=== PATIENT | male | born 1970 | race Caucasian/White ===

== ENCOUNTER 2018-09-02 12:28 | Emergency (ER) | payer BC ==
[~2018-09-02] VITALS: Ht 180.3 cm; Wt 102.3 kg
[2018-09-02 12:43] VITALS: BP 146/102
[2018-09-02] MEDS ORDERED: cephalexin 500mg capsule PO ONE (13:35)
[2018-09-02] MEDS ORDERED: CEPH500C5 PO (13:35)
== END 2018-09-02 13:55 | disposition home or self-care (01) ==
LOC: ER 12:28
DX: L02.512 Cutaneous abscess of left hand (principal); M79.642 Pain in left hand; I10 Essential (primary) hypertension; G89.29 Other chronic pain; Z87.891 Personal history of nicotine dependence; Z98.890 Other specified postprocedural states; Z88.2 Allergy status to sulfonamides
CPT/HCPCS: 29125; 99283

== ENCOUNTER 2021-11-26 16:35 | Emergency (ER) | payer BC ==
[~2021-11-26] VITALS: Ht 180.3 cm; Wt 106.8 kg
[2021-11-26] MEDS ORDERED: morphine 4 MG/ML inj SYRINge IM ONE (17:40)
[2021-11-26] MEDS ORDERED: ketorolac trometh inj. 60 MG/2 ML VIAL IM ONE (17:40)
[2021-11-26] MEDS ORDERED: PRED20TA PO ×3 (17:47→17:48)
[2021-11-26 18:08] VITALS: BP 122/84
== END 2021-11-26 18:10 | disposition home or self-care (01) ==
LOC: ER 16:35
DX: M25.561 Pain in right knee (principal); L40.50 Arthropathic psoriasis, unspecified; M25.562 Pain in left knee; M25.552 Pain in left hip; I10 Essential (primary) hypertension; G89.29 Other chronic pain; F12.90 Cannabis use, unspecified, uncomplicated; Z72.89 Other problems related to lifestyle; Z88.2 Allergy status to sulfonamides; Z79.899 Other long term (current) drug therapy
CPT/HCPCS: 96372; 99284; J1885; J2270

== ENCOUNTER 2024-02-10 17:21 | Observation (INO) | payer BC ==
[~2024-02-10] VITALS: Ht 177.8 cm; Wt 113.6 kg
[~2024-02-10 17:21] MED LIST: PRED20TA PO
[2024-02-10 17:59] LABS: EOSINOPHILS # (AUTO) 0.2 X10'3 (0-0.9); LYMPHOCYTES # (AUTO) 1.5 X10'3 (1.1-4.8); MEAN CORPUSCULAR HEMOGLOBIN 29.9 PG (27.0-31.0); MEAN PLATELET VOLUME 8.4 FL (7.4-10.4); MONOCYTES # (AUTO) 0.7 X10'3 (0-0.9)
[2024-02-10 18:00] LABS: BASOPHILS % (AUTO) 0.7 % (0-1); HEMATOCRIT 47.9 % (42.0-52.0); HEMOGLOBIN 16.1 g/dl (14.0-17.9); LYMPHOCYTES % (AUTO) 21.9 % (21-51); MEAN CORPUSCULAR HGB CONC 33.6 g/dL (33.0-36.5); MONOCYTES % (AUTO) 10.5 % (2-12); NEUTROPHILS # (AUTO) 4.3 X10'3 (1.8-7.7); NEUTROPHILS % (AUTO) 63.9 % (42-75); PLATELET COUNT 216 X10'3 (140-440); RED BLOOD COUNT 5.38 X10'6 (4.70-6.10); RED CELL DISTRIBUTION WIDTH 14.2 % (11.5-14.5); WHITE BLOOD COUNT 6.7 X10'3 (4.5-11.0)
[2024-02-10 18:07] LABS: ANION GAP 8 (8-16); BLOOD UREA NITROGEN 10 MG/DL (7-18); BUN/CREATININE RATIO 8.9 (10.0-20.0); CHLORIDE 101 MMOL/L (99-107); CREATININE 1.12 MG/DL (0.60-1.10); GLUCOSE 101 MG/DL (70-104); POTASSIUM 4.5 MMOL/L (3.5-5.1); SODIUM 137 MMOL/L (135-145); TOTAL CARBON DIOXIDE 27.8 MMOL/L (24-32); eCRCL 77 ML/MIN; eGFR 68 ML/MIN
[2024-02-10 18:11] LABS: APTT 24 SECONDS (22-32); PROTHROMBIN TIME 10.6 SECONDS (9.0-12.0)
[2024-02-10] MEDS ORDERED: MODA200T48 PO (19:19)
[2024-02-10] MEDS ORDERED: LISI20TA28 PO (19:19)
[2024-02-10] MEDS ORDERED: TOFA11TA PO (19:19)
[2024-02-10] MEDS ORDERED: HYDR-3973 PO (19:19)
[2024-02-10] MEDS ORDERED: acetaminophen 325mg tablet PO PRN (19:50)
[2024-02-10] MEDS ORDERED: mag hydrox/Alum hydrox/simeth 30ml oral suspension PO PRN (19:50)
[2024-02-10] MEDS ORDERED: magnesium 4gm in 100ml NS 100 ML IV PRN (19:50)
[2024-02-10] MEDS ORDERED: potassium Cl 40MEQ/1/2NS 520ml 520 ML IV PRN (19:50)
[2024-02-10] MEDS ORDERED: magnesium Cl slow-release 64mg tablet PO PRN (19:50)
[2024-02-10] MEDS ORDERED: magnesium 2GM in 50ml NS 50 ML IV PRN (19:50)
[2024-02-10] MEDS ORDERED: potassium Cl 20 mEq SR tablet PO PRN ×2 (19:50)
[2024-02-10] MEDS ORDERED: ondansetron/PF 4mg/2ml inj IV PRN (19:50)
[2024-02-10] MEDS ORDERED: magnesium hydroxide 30ml (MOM) UD suspension PO PRN (19:50)
[2024-02-10] MEDS ORDERED: dexamethasone inj 6 MG in dextrose 5%-water 100 ML IV SCH (20:00)
[2024-02-10] MEDS: K and/or MAG REPLACEMENT MC SCH (20:00)
[2024-02-10] MEDS: docusate sod 100mg capsule PO SCH (20:00)
[2024-02-10] MEDS: dexamethasone inj 6 MG in normal saline 50ml IV soln 50 ML IV SCH (20:28)
[2024-02-10 20:34] LABS: THYROID STIMULATING HORMONE 2.28 ulU/ml (0.34-4.50)
[2024-02-10 22:00] VITALS: BP 150/96; PULSE 72; RESP 18; TEMP 99.7; O2SAT 94
[2024-02-10] MEDS ORDERED: prosta genix (23:08)
[2024-02-10] MEDS ORDERED: CETI10CA11 PO (23:08)
[2024-02-10] MEDS ORDERED: PRED20TA PO (23:08)
[2024-02-10] MEDS ORDERED: OMEP20CA15 PO (23:08)
[2024-02-10] MEDS ORDERED: INDO75CA3 PO (23:11)
[2024-02-10] MEDS ORDERED: PRED10TA PO (23:22)
[2024-02-11 02:00] VITALS: BP 117/67; PULSE 73; RESP 13; TEMP 96.7; O2SAT 96
[2024-02-11 06:44] LABS: BASOPHILS % (AUTO) 0.2 % (0-1); EOSINOPHILS % (AUTO) 0.2 % (0-6); HEMATOCRIT 51.3 % (42.0-52.0); HEMOGLOBIN 17.3 g/dl (14.0-17.9); LYMPHOCYTES # (AUTO) 0.9 X10'3 (1.1-4.8); MEAN CORPUSCULAR HEMOGLOBIN 29.9 PG (27.0-31.0); MEAN CORPUSCULAR HGB CONC 33.7 g/dL (33.0-36.5); MEAN CORPUSCULAR VOLUME 88.7 FL (78-98); MEAN PLATELET VOLUME 8.9 FL (7.4-10.4); MONOCYTES # (AUTO) 0.3 X10'3 (0-0.9); NEUTROPHILS # (AUTO) 6.5 X10'3 (1.8-7.7); NEUTROPHILS % (AUTO) 83.6 % (42-75); PLATELET COUNT 251 X10'3 (140-440); RED BLOOD COUNT 5.78 X10'6 (4.70-6.10); RED CELL DISTRIBUTION WIDTH 14.1 % (11.5-14.5); WHITE BLOOD COUNT 7.8 X10'3 (4.5-11.0)
[2024-02-11 07:00] VITALS: BP 123/80; PULSE 70; RESP 17; TEMP 98; O2SAT 97
[2024-02-11 07:00] LABS: ALANINE AMINOTRANSFERASE 62 U/L (12-78); ALBUMIN 4.2 G/DL (3.4-5.0); ALKALINE PHOSPHATASE 55 IU/L (46-116); ANION GAP 9 (8-16); ASPARTATE AMINO TRANSFERASE 31 U/L (10-37); BILIRUBIN,TOTAL 0.8 MG/DL (0.1-1.0); BLOOD UREA NITROGEN 10 MG/DL (7-18); BUN/CREATININE RATIO 8.5 (10.0-20.0); CALCIUM 9.5 MG/DL (8.5-10.1); CHLORIDE 101 MMOL/L (99-107); CREATININE 1.17 MG/DL (0.60-1.10); GLUCOSE 116 MG/DL (70-104); MAGNESIUM 2.4 MG/DL (1.5-2.4); POTASSIUM 4.9 MMOL/L (3.5-5.1); SODIUM 136 MMOL/L (135-145); TOTAL CARBON DIOXIDE 26.3 MMOL/L (24-32); TOTAL PROTEIN 8.5 G/DL (6.4-8.2); eCRCL 74 ML/MIN; eGFR 65 ML/MIN
[2024-02-11] MEDS: enoxaparin 30mg/0.3ml syringe SUBCUT SCH (08:00)
[2024-02-11 11:00] VITALS: BP 136/89; PULSE 80; RESP 20; TEMP 98.5; O2SAT 96
[2024-02-11] MEDS ORDERED: ACET-1084 PO (11:30)
== END 2024-02-11 12:32 | disposition home or self-care (01) ==
LOC: ER 17:22 → ED HOLD 19:52 → PCU 3S 21:20
PROVIDERS: ADMIT Internal Medicine; ATTEND Family Medicine
DX: S06.9X9A Unspecified intracranial injury with loss of consciousness of unspecified duration, initial encounter (principal); R41.3 Other amnesia; I10 Essential (primary) hypertension; L40.50 Arthropathic psoriasis, unspecified; M48.02 Spinal stenosis, cervical region; W19.XXXA Unspecified fall, initial encounter; Y93.89 Activity, other specified; Y92.89 Other specified places as the place of occurrence of the external cause; Y99.8 Other external cause status
CPT/HCPCS: 36415; 70450; 72125; 80048; 80053; 83735; 84443; 85025; 85610; 85730; 87081; 93005; 96365; 96366; 99284; G0378; J1100; J3490; J7040; A6212